=== PATIENT | female | born 1995 | race Caucasian/White ===

== ENCOUNTER 2017-02-23 11:45 | Inpatient (IN) ==
--- OUTSIDE RECORDS SUMMARY | 2017-02-23 11:51 | External Medical Summary | Continuity of Care Document ---
:1995 Author Organization [facility] [employer] Address [address] [place], [place] [id number] Phone Care Team Providers Name Role Phone [facility], [facility], [facility] Unavailable Unavailable Allergies, Adverse Reactions, Alerts Substance Reaction Severity Status No Known Drug Allergies Unknown Active Medications Medication Instructions Dosage Effective Dates Status Comments (start - stop) Miralax 17 take (17G) by 17 G - Active gram/dose oral oral route every powder day mixed with 8 oz. water, juice, soda, coffee or tea as needed ondansetron HCl 4 take 1 by Oral Not Available - Active mg tablet route every 4 hours ProAir HFA 90 inhale 2 puff by - Active mcg/actuation inhalation route aerosol inhaler every 4 - 6 hours as needed Tylenol 325 mg take 2 tablet by 650 MG - Active tablet oral route every 6 hours as needed Vitamin take 1 tablet by Not Available - Active tablet oral route every day amoxicillin 500 take 1 tablet by 500 MG - No Longer mg tablet oral route 3 times Active every day for 10 days Problems Condition Effective Dates (start - stop) Clinical Status Candidiasis of vulva and vagina Vaginal Discharge or Lesion Matern care for oth or susp poor fetl - grth, 2nd tri, unsp 17 weeks gestation of - Encounter for suprvsn of normal - , second trimester 19 weeks gestation of - 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 Follow-Up, Routine Other pruritus Ulceration of vagina Other pruritus Ulceration of vagina Dysuria Encntr screen for infections w sexl mode of transmiss Encounter for test, result - negative Matern care for oth or susp poor fetl - grth, 2nd tri, unsp 19 weeks gestation of - Other mental disorders complicating the puerperium Nausea with vomiting, unspecified Follow-Up, Routine Pap Smear Screening, Cervix - Encounter for suprvsn of normal - , first trimester 10 weeks gestation of - Encounter for suprvsn of normal - , first trimester 13 weeks gestation of - Encounter for suprvsn of normal - , second trimester 24 weeks gestation of - 13 weeks gestation of - Encounter for screening of - mother Encounter for suprvsn of normal - , second trimester 27 weeks gestation of - Active Procedures Procedure Date Unknown Results Test Name Date and Time Measure Units Reference Range Abnormal Flag Comments Unknown Advance Directives Directive Yes / No Effective Date File Name Unknown Encounters Encounter Practice Location Reason(s) Diagnoses Date Provider Care Team Description For Visit Members Arnol [place] Encounter for Nov- Lou Referring In Womens suprvsn of normal 5-201 Erin. Provider: Antonio WHITEHEAD, , second 7 700 Erin Lou [address] [id number] weeks Medical K, 700 1522, gestation of [place], , [facility] [place], 120, [place], [id number], [facility], [place], tel:[phone]. , . tel:+ tel: [phone] Arnol [place] Nov-0 Lou In Womens 3-201 Erin. Antonio WHITEHEAD, 7 700 PO [address] Medical [address], [place] [address] [place], [facility] [place], 120, [id number], [facility], tel:[phone] , . tel: [phone] Arnol [place] Encounter for Oct- Lou Referring In Womens suprvsn of normal 5-201 Erin. Provider: Antonio WHITEHEAD, , second 7 700 Erin Lou PO Box [email or web address] weeks Medical K, 700 1522, gestation of [facility], , [facility] Dr [place], 120, [place] 120, [id number], Kwadwo [place], [place], tel:[phone]. , [place]. tel: tel: [phone] Arnol [place] Encounter for Kyree-2 Lou Referring In Womens suprvsn of normal 1-201 Erin. Provider: Health CHARLEY, , second 7 700 Erin Lou PO Box [id number] weeks Medical , 700 1522, gestation of [facility], , [facility] Dr [place], 120, [place] 120, [id number], Kwadwo [place], [place], tel:[phone]. , [place]. tel: tel: [phone] [place] Matern care for Kyree-2 Lou Referring In Womens Ultrasound oth or susp poor 1-201 Erin. Provider: Antonio WHITEHEAD fetsheng fink, 2nd 7 700 Erin Lou PO Box tri, [email or web address] weeks Medical , 700 1522, gestation of [facility], , [facility] Dr [place], 120, [place] 120, [id number], Kwadwo [place], [place], tel:[phone]. , [place]. tel: tel: [phone] Arnol [place] Matern care for Kyree-0 Lou Referring In Womens oth or susp poor 6-201 Erin. Provider: ej Louis, 2nd 7 700 Erin Lou PO Box tri, [email or web address] weeks Medical , 700 1522, gestation of [facility], , [facility] Dr [place], 120, [place] 120, [id number], Kwadwo [place], [place], tel:[phone]. , [place]. tel: tel: [phone] Arnol [place] May-1 Lou In Womens 5-201 Erin. Antonio WHITEHEAD, 7 700 PO Box Medical [address], [address] [place], [place], 120, [id number], [place], tel: [phone] , [place]. tel: [phone] Arnol [place] Encounter for Lou Referring In Womens suprvsn of normal 0-201 Erin. Provider: Health CHARLEY, , first 7 700 Erin Lou PO Box [email or web address] weeks Medical K, 700 1522, gestation of [facility] [place], , [facility] Dr [place], 120, [place] 120, , Kwadwo [place], [place], tel: [phone]. , [place]. tel: tel: [phone] Arnol [place] 13 weeks Lou Referring In Womens Ultrasound gestation of 0-201 Erin. Provider: Health CHARLEY, pregnancyEncounte 7 700 Erin Lou PO Box r for Medical K, 700 1522, screening of [place], mother , [facility] Dr [place], 120, [place] 120, , Kwadwo [place], [place], [place], tel: [phone]. , [place]. tel: tel: [phone] Arnol [place] Pap Smear Apr-2 Lou Referring In Womens Screening, 0-201 Erin. Provider: Health CHARLEY, CervixEncounter 7 700 Erin Lou PO Box for suprvsn of Medical K, 700 1522, normal , [place], first [email or web address] , [facility] Dr [place], weeks gestation 120, [place] 120, , of Kwadwo [place], [place], tel: [phone]. , [place]. tel: tel: [phone] Arnol [place] Candidiasis of Apr-0 Norris Referring In Womens vulva and 7-201 Ela. Provider: Health CHARLEY, vaginaVaginal 7 700 Erin Lou PO Box Discharge or Medical K, 700 1522, [place] [address], [facility] Dr [place], 120, [place] 120, , Kwadwo [place], [place], tel:[phone]. , [place]. tel: tel: [phone] Arnol [place] Other August-1 Bland Referring In Womens pruritusUlceratio 7-201 Cassia. Provider: Health PA, n of vagina 6 700 Erin Lou PO Box Medical K, 700 1522, [place] [address], [facility] Dr [place], 120, [place] 120, , Kwadwo [place], [place], tel: [phone]. , [place]. tel: tel: [phone] Arnol Jackosn August-1 Bland Referring In Womens pruritusUlceratio 0-201 Cassia. Provider: Health CHARLEY, n of 6 700 Erin Lou PO Box vaginaDysuriaEncn Medical K, 700 1522, tr screen for [place], infections w sexl , [facility] Dr [place], mode of 120, [place] 120, , transmissEncounte Kwadwo [place], r for [place], tel: test, result [phone] [id number]. negative , [place]. tel: tel: [phone] Arnol [place] Puerperal Mar-2 Lou Referring In Womens psychosisEncounte 2-201 Erni. Provider: Health PA, r for initial 6 700 Erin Lou PO Box prescription of Medical K, 700 1522, injectable [place], contracepPostpart , [facility] Dr [place], Follow-Up, 120, [place] 120, , Routine Kwadwo [place], [place], tel:[phone]. , [place]. tel: tel: [phone] Arnol Jackson mental Mar-0 Lou Referring In Womens disorders 8-201 Erin. Provider: Health PA, complicating the 6 700 Erin Lou PO Box puerperiumNausea Medical K, 700 1522, with vomiting, [facility] [place], unspecifiedPostpa , [facility] Dr [place], rtum Follow-Up, 120, [place] 120, [id number], Routine Kwadwo [place], [place], tel: [phone]. , [place]. tel: tel: [phone] Associates Kw[facility] Krzysztof-0 Maura In Womens 3-201 Kaley. Health [place], 3 700 PO Box [facility] 1522, [place], , [facility] [place], 120, [id number], [place], tel: [phone] , [place]. tel: [phone] Family History Family Member Diagnosis Age At Onset No family history of Colon Cancer No family history of Ovarian Cancer No family history of Epilepsy No family history of Kidney Problems No family history of Thyroid Disorder No family history of Thrombosis No family history of Cardiovascular Disease Maternal Grandfather Diabetes mellitus No family history of Hypertension No family history of Osteoporosis Maternal Grandmother Cancer, breast No family history of Lung Disease No family history of Stroke Immunizations Vaccine Date Status Comments Unknown Payers Payer name Insurance type Covered libertarian ID Authorization(s) [employer] Plan Of [place] - Medicaid MC [id number] Social History Type Description Quantity Date Captured Unknown Vital Signs Date / Height Weight BMI Pulse Blood Temperature Respiratory Body Head BMI Time: Rate Pressure Rate Surface Circumference percentile Area Unknown Chief Complaint And Reason For Visit Unknown Chief Complaint And Reason For Visit Reason For Referral Reason For Referral Unknown Plan Of Care Date Type Action Status Appointment Kaylah Maurice BOOKED Future Order: Radiology Order Complete OB Ultrasound > 14 Ordered Weeks ([id number]) Future Order: Radiology Order Nuchal Translucency ([id number]) Ordered Date Type Problem Goal Intervention Status Start Date Unknown. History Of Present Illness Encounter Date Complaint History Of Present Illness This patient has no known history of present illness Functional Status Encounter Date Functional Assessment Cognitive Assessment Unknown Medications Administered Medication Instructions Dosage Effective Dates (start - stop) Status Comments Drug Treatment Unknown Instructions Date Instruction Additional Information gestational glucose lab screening HIV and other routine tests risk factors identified by history anticipated course of care nutrition and weight gain counseling, special diet toxoplasmosis precautions (cats / raw meat) sexual activity exercise indications for ultrasound influenza vaccine environmental / work hazards travel use of any medications (including supplements, vitamins, herbs, OTC drugs) domestic violence seat belt use childbirth classes / hospital facilities hospital registration genetic testing Zika virus assessment & precautions
--- OUTSIDE RECORDS SUMMARY | 2017-02-23 11:51 | External Medical Summary | Continuity of Care Document ---
:1995 Author Organization [facility] [employer] [facility] Address [address] [place], [place] [id number] Phone Care Team Providers Name Role Phone [facility], [facility], [facility] Unavailable Unavailable Allergies, Adverse Reactions, Alerts Substance Reaction Severity Status No Known Drug Allergies Unknown Active Medications Medication Instructions Dosage Effective Dates Status Comments (start - stop) Miralax 17 take (17G) by oral 17 G - Active gram/dose oral route every day powder mixed with 8 oz. water, juice, soda, coffee or tea as needed ondansetron HCl 4 take 1 by Oral route Not Available - Active mg tablet every 4 hours ProAir HFA 90 inhale 2 puff by - Active mcg/actuation inhalation route aerosol inhaler every 4 - 6 hours as needed Tylenol 325 mg take 2 tablet by 650 MG - Active tablet oral route every 6 hours as needed Vitamin take 1 tablet by Not Available - Active tablet oral route every day Problems Condition Effective Dates (start - stop) Clinical Status Encounter for suprvsn of normal - , second trimester 27 weeks gestation of - Candidiasis of vulva and vagina Vaginal Discharge or Lesion Matern care for oth or susp poor fetl - grth, 2nd tri, unsp 17 weeks gestation of - Encounter for suprvsn of normal - , second trimester 19 weeks gestation of - 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 Follow-Up, Routine Other pruritus Ulceration of vagina Other pruritus Dysuria Encntr screen for infections w sexl mode of transmiss Ulceration of vagina Encounter for test, result - negative Other mental disorders complicating the puerperium Nausea with vomiting, unspecified Follow-Up, Routine Pap Smear Screening, Cervix - Encounter for suprvsn of normal - , first trimester 10 weeks gestation of - Matern care for oth or susp poor fetl - grth, 2nd tri, unsp 19 weeks gestation of - 13 weeks gestation of - Encounter for screening of - mother Encounter for suprvsn of normal - , first trimester 13 weeks gestation of - Encounter for suprvsn of normal - , second trimester 24 weeks gestation of - Active Procedures Procedure Date OB Visit No Charge Results Test Name Date and Time Measure Units Reference Range Abnormal Flag Comments Panel Description: Glucose [Mass/volume] in Serum or Plasma --1 hour post 50 g glucose PO GLUCOSE, 125 mg/dL <140 N Test performed at [facility] 15:55:00 DIAGNOSTICS [id number] (50G)-[address] [place] [address]Tfgmhuvu: DELIO ORTEGA DO,MPH Panel Description: HEMOGLOBIN + HEMATOCRIT HEMOGLOBIN 15:55:00 10.4 g/dL 11.7-15.5 L HEMATOCRIT 15:55:00 30.9 % 35.0-45.0 L Test performed at [facility] [employer] [id number] [place] [address]Psqkixqt: DELIO ORTEGA DO,MPH Advance Directives Directive Yes / No Effective Date File Name Unknown Encounters Encounter Practice Location Reason(s) Diagnoses Date Provider Care Team Description For Visit Members Arnol Burkett Encounter for Lou Referring In Womens suprvsn of normal 5-201 Erin. Provider: Health PA, , second 7 700 Erin Lou PO Box [email or web address] weeks Medical K, 700 1522, gestation of [place], , [facility] [place], 120, [place], [id number], Kwadwo [place], [place], tel:[phone]. , [place]. tel: tel: [phone] Arnol [place] Encounter for Ryan-2 Lou Referring In Womens suprvsn of normal 5-201 Erin. Provider: Health CHARLEY, , second 7 700 Erin Lou PO Box [email or web address] weeks Medical K, 700 1522, gestation of [facility], , [facility] [address] [place], 120, [place] 120, [id number], Kwadwo [place], [place], tel: [phone]. , [place]. tel: tel: [phone] [place] Encounter for Kyree-2 Lou Referring In Womens suprvsn of normal 1-201 Erin. Provider: Health CHARLEY, , second 7 700 Erin Lou PO Box [email or web address] weeks Medical , 700 1522, gestation of [facility], , [facility] Dr [place], 120, [place] 120, [id number], Kwadwo [place], [place], tel: [phone]. , [place]. tel: tel: [phone] Arnol [place] Matern care for Kyree-2 Lou Referring In Womens Ultrasound oth or susp poor 1-201 Erin. Provider: Health CHARLEY, fetl grth, 2nd 7 700 Erin Lou PO Box tri, [id number] weeks Medical , 700 1522, gestation of [facility], , [facility] Dr [place], 120, [place] 120, [id number], Kwadwo [place], [place], tel: [phone]. , [place]. tel: tel: [phone] [place] Matern care for Kyree-0 Lou Referring In Womens oth or susp poor 6-201 Erin. Provider: Antonio WHITEHEAD, fetl grth, 2nd 7 700 Erin Lou PO Box tri, [email or web address] weeks Medical , 700 1522, gestation of [facility], , [facility] Dr [place], 120, [place] 120, [id number], Kwadwo [place], [place], tel: [phone]. , [place]. tel: tel: [phone] Arnol [place] August- Lou In Womens 5-201 Erin. Health CHARLEY, 7 700 PO Box Medical [address], [place], , [place], 120, , [place], tel:[phone] , [place]. tel: [phone] Arnol [place] Encounter for August- Lou Referring In Womens suprvsn of normal 0-201 Erin. Provider: Health CHARLEY, , first 7 700 Erin Lou PO Box [id number] weeks Medical K, 700 1522, gestation of [facility] [place], Dr, [facility] Dr [place], 120, [place] 120, , Kwadwo [place], [place], tel:[phone]. , [place]. tel: tel: [phone] Arnol [place] 13 weeks August- Lou Referring In Womens Ultrasound gestation of 0-201 Erin. Provider: Health CHARLEY, pregnancyEncounte 7 700 Erin Lou PO Box r for Medical K, 700 1522, screening of [facility] [place], mother , [facility] Dr [place], 120, [place] 120, , Kwadwo [place], [place], tel:[phone]. , [place]. tel: tel: [phone] Arnol [place] Pap Smear Apr-2 Lou Referring In Womens Screening, 0-201 Erin. Provider: Health CHARLEY, CervixEncounter 7 700 Erin Lou PO Box for suprvsn of Medical K, 700 1522, normal , [facility] [place], first [id number] , [facility] Dr [place], weeks gestation 120, [place] 120, , of Kwadwo [place], [place], tel:[phone]. , [place]. tel: tel: [phone] Arnol [place] Candidiasis of Jul-0 Norris Referring In Womens vulva and Ela. Provider: Health CHARLEY, vaginaVaginal 7 700 Erin Lou PO Box Discharge or Medical K, 1522, [place] [address], [facility] Dr [place], 120, [place] 120, , Kwadwo [place], [place], tel:[phone]. , [place]. tel: tel: [phone] Associates Kw[facility]wo Other Bland Referring In Womens pruritusUlceratio - Cassia. Provider: Health CHARLEY, n of vagina 6 700 Erin Lou PO Box Medical K, 152, [place] [address], [facility] Dr [place], 120, [place] 120, , Kwadwo [place], [place], tel:[phone]. , [place]. tel: tel: [phone] Associates [facility] Other Bland Referring In Womens pruritusDysuriaEn 0- Cassia. Provider: Health CHARLEY, cntr screen for 6 700 Erin Lou PO Box infections w sexl Medical K, 152, mode of [place], transmissUlcerati , [facility] Dr [place], on of 120, [place] 120, , vaginaEncounter Kwadwo [place], for [place], tel: test, result [id number]. negative , [place]. tel: tel: [phone] Arnol [place] Puerperal Mar-2 Lou Referring In Womens psychosisEncounte 2-201 Erin. Provider: Health CHARLEY, r for initial 6 700 Erin Lou PO Box prescription of Medical K, 700 1522, injectable [place], contracepPostpart , [facility] Dr [place], Follow-Up, 120, [place] 120, , Routine Kwadwo [place], [place], tel:[phone]. , [place]. tel: tel: [phone] Associates [facility] Other mental Mar-0 Lou Referring In Womens disorders 8-201 Erin. Provider: Health CHARLEY, complicating the 6 700 Erin Lou PO Box puerperiumNausea Medical K, 700 1522, with vomiting, [facility] [place], unspecifiedPostpa , [facility] [place], rtum Follow-Up, 120, [place] 120, [id number], Routine Kwadwo [place], [place], tel: [phone]. , . tel: tel: [phone] Arnol [place] Krzysztof-0 Maura In Womens 3-201 Kaley. Health CHARLEY, 3 700 PO [address] Medical [address], [place], , [place], 120, [id number], [place], tel: [phone] , . tel: [phone] Family History Family Member Diagnosis Age At [...] Unknown Payers Payer name Insurance type Covered constitution party ID Authorization(s) [employer] Plan Of [place] - Medicaid MC [id number] Social History Type Description Quantity Date Captured Alcohol Use Details No Caffeine Use Details Unknown Tobacco Use Status Unknown Smoking Status Never smoker Vital Signs Date / Height Weight BMI Pulse Blood Temperature Respiratory Body Head BMI Time: Rate Pressure Rate Surface Circumference percentile Area 5 3:09 kg/m PM eter (2) 134.50 23.4 116/65 lbs 5 mm[Hg] 3:08 kg/m PM eter (2) 135.00 23. lbs 4 3:08 kg/m PM eter (2) 134.60 23.4 116/65 lbs 7 mm[Hg] 2:56 kg/m PM eter (2) Chief Complaint And Reason For Visit Unknown Chief Complaint And Reason For Visit Reason For Referral Reason For Referral Unknown Plan Of Care Date Type Action Status Appointment Kaylah Maurice BOOKED Future Order: Radiology Order Complete OB Ultrasound > 14 Ordered Weeks ([id number]) Future Order: Radiology Order Nuchal Translucency ([id number]) Ordered Date Type Problem Goal Intervention Status [...]
--- OUTSIDE RECORDS SUMMARY | 2017-02-23 11:51 | External Medical Summary | Continuity of Care Document ---
:1995 Author Organization [facility] Address [address] [place], [place] [id number] Phone Care Team Providers Name Role Phone [facility], [facility], [facility] Unavailable Unavailable Allergies, Adverse Reactions, Alerts Substance Reaction Severity Status No Known Drug Allergies Unknown Active Medications Medication Instructions Dosage Effective Dates Status Comments (start - stop) acyclovir 400 mg take 1 tablet by - Active tablet oral route 3 times every day until delivery Miralax 17 take (17G) by oral 17 G - Active gram/dose oral route every day powder mixed with 8 oz. water, juice, soda, coffee or tea as needed ProAir HFA 90 inhale 2 puff by [...] vulva and vagina Vaginal Discharge or Lesion Encounter for suprvsn of normal - , second trimester 19 weeks gestation of - Matern care for oth or susp poor fetl - grth, third tri, unsp Encounter for suprvsn of normal - , third trimester 34 weeks gestation of - 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 Follow-Up, Routine Other pruritus Ulceration of vagina Other pruritus Ulceration of vagina Dysuria Encntr screen for infections w sexl mode of transmiss Encounter for test, result - negative Matern care for oth or susp poor fetl - grth, 2nd tri, unsp 19 weeks gestation of - Matern care for oth or susp poor fetl - grth, 2nd tri, unsp 17 weeks gestation of - Matern care for oth or susp poor fetl - grth, third tri, unsp 35 weeks gestation of - Other mental disorders complicating the puerperium Nausea with vomiting, unspecified Follow-Up, Routine Pap Smear Screening, Cervix - Encounter for suprvsn of normal - , first trimester 10 weeks gestation of - Encounter for suprvsn of normal - , first trimester 13 weeks gestation of - Encounter for suprvsn of normal - , second trimester 24 weeks gestation of - Encounter for suprvsn of normal - , second trimester 27 weeks gestation of - Encounter for suprvsn of normal - , third trimester 32 weeks gestation of - Encounter for screening of - mother 13 weeks gestation of - Encounter for suprvsn of normal - , third trimester 30 weeks gestation of - 35 weeks gestation of - Encounter for suprvsn of normal - , third trimester Encounter For Screening For - Streptococcus B Active Procedures Procedure Date Unknown Results Test Name Date and Time Measure Units Reference Range Abnormal Flag Comments Unknown Advance Directives Directive Yes / No Effective Date File Name Unknown Encounters Encounter Practice Location Reason(s) Diagnoses Date Provider Care Team Description For Visit Members Arnol [place] 35 weeks Jan- Lou Referring In Womens gestation of 2-201 Erin. Provider: Health CHARLEY pregnancyJese 7 700 Erin Lou PO Box r for suprvsn of Medical K, 700 1522, normal , [facility] , [facility] [address] [place], trimesterEncounte 120, Williams 120, [id number], r For [place], [place] Screening For [place], [place], tel:[phone] Streptococcus B [phone]. , [place]. tel: tel: [phone] Arnol [place] Matern care for Oct-1 Lou Referring In Womens Ultrasound oth or susp poor 2-201 Erin. Provider: Antonio WHITEHEAD, fetl grth, third 7 700 Erin Lou PO Box tri, [email or web address] weeks Medical , 700 1522, gestation of [facility], , [facility] [address] [place], 120, [place] 120, [id number], [place], [place], [place], tel:[phone]. , [place]. tel: tel: [phone] Arnol [place] Matern care for Oct-0 Lou Referring In Womens oth or susp poor 3-201 Erin. Provider: Antonio WHITEHEAD, fetl grth, third 7 700 Erin Lou PO Box tri, Medical , 700 1522, unspEncounter for [facility], suprvsn of normal , [facility] Dr [place], , third 120, Williams 120, [id number], [email or web address] weeks Kwadwo [place], gestation of [place], [place], tel: [phone]. , [place]. tel: tel: [phone] Arnol [place] Sep-2 Lou In Womens 5-201 Erin. Antonio WHITEHEAD, 7 700 PO Box Medical [address], [address] [place], 120, [id number], [place], [place], tel:[phone] , [place]. tel: [phone] Arnol [place] Encounter for Sep-1 Lou Referring In Womens suprvsn of normal 9-201 Erin. Provider: Antonio WHITEHEAD, , third 7 700 Erin Lou PO Box [email or web address] weeks Medical , 700 1522, gestation of [facility], , [facility] [address] [place], 120, Williams 120, [id number], Kw[place], [place], tel: [phone]. , [place]. tel: tel: [phone] Arnol [place] Encounter for Sep-0 Lou Referring In Womens suprvsn of normal 5-201 Erin. Provider: Health CHARLEY, , third 7 700 Erin Lou PO Box [email or web address] weeks Medical , 700 1522, gestation of [facility], , [facility] [address] [place], 120, [place] 120, [id number], Kw[place], [place], [place], tel: [phone]. , [place]. tel: tel: [phone] Arnol [place] Encounter for Aug-1 Lou Referring In Womens suprvsn of normal 5-201 Erin. Provider: Health CHARLEY, , second 7 700 Erin Lou PO Box [email or web address] weeks [facility], 700 1522, gestation of [facility], , [facility] [address] [place], 120, [place] 120, [id number], Kwadwo [place], [facility], [place], tel: [phone]. , [place]. tel: tel: [phone] Arnol [place] Encounter for Ryan-2 Lou Referring In Womens suprvsn of normal 5-201 Erin. Provider: Health CHARLEY, , second 7 700 Erin Lou PO Box [email or web address] weeks Medical , 700 1522, gestation of [facility], , [facility] [address] [place], 120, [place] 120, [id number], Kw[place]wo [place], [facility], [place], tel: [phone]. , [place]. tel: tel: [phone] Arnol Burk[place] Encounter for Kyree-2 Lou Referring In Womens suprvsn of normal 1-201 Erin. Provider: Health CHARLEY, , second 7 700 Erin Lou PO Box [id number] weeks Medical , 700 1522, gestation of [facility], , [facility] Dr [place], 120, [place] 120, [id number], [place]wo [place], [place], [place], tel: [phone]. , [place]. tel: tel: [phone] Arnol [place] Matern care for Kyree-2 Lou Referring In Womens Ultrasound oth or susp poor 1-201 Erin. Provider: Antonio WHITEHEAD, ej crawford, 2nd 7 700 Erin Lou PO Box tri, [email or web address] weeks Medical K, 700 1522, gestation of [facility], , [facility] Dr [place], 120, [place] 120, [id number], Kw[place]wo [place], [place], tel: [phone]. , [place]. tel: tel: [phone] Arnol Burk[place] Matern care for Kyree-0 Lou Referring In Womens oth or susp poor 6-201 Erin. Provider: ej Louis [facility], 2nd 7 700 Erin Lou PO Box tri, [email or web address] weeks Medical , 700 1522, gestation of [facility], , [facility] [address] [place], 120, [place] 120, [id number], Kw[place]wo [place], [place], tel: [phone]. , [place]. tel: tel: [phone] Arnol Burk[place] May-1 Lou In Womens 5-201 Erin. Antonio WHITEHEAD, 7 700 PO Box Medical [address], [address] [place], 120, [id number], [place], [place], tel: [phone] , [place]. tel: [phone] Arnol Burk[place] Encounter for May-1 Lou Referring In Womens suprvsn of normal 0-201 Erin. Provider: Antonio WHITEHEAD, , first 7 700 Erin Lou PO Box [email or web address] weeks Medical , 700 1522, gestation of [facility], , [facility] [address] [place], 120, [place] 120, [id number], [place], [place], tel: [phone]. , [place]. tel: tel: [phone] Arnol [place] Encounter for May-1 Lou Referring In Womens Ultrasound 0-201 Erin. Provider: Health CHARLEY, screening of 7 700 Erin Lou PO Box [email or web address] weeks Medical K, 700 1522, gestation of [facility], , [facility] [address] [place], 120, [place] 120, , [place], [place], [place], tel: [phone]. , [place]. tel: tel: [phone] Arnol [place] Pap Smear Apr-2 Lou Referring In Womens Screening, 0-201 Erin. Provider: Health CHARLEY, CervixEncounter 7 700 Erin Lou PO Box for suprvsn of Medical K, 700 1522, normal , [facility], first [email or web address] , [facility] Dr [place], weeks gestation 120, Williams 120, , of Kwadwo [place], [place], [place], tel: [phone]. , [place]. tel: tel: [phone] Arnol Burk[place] Candidiasis of Apr-0 Norris Referring In Womens vulva and 7-201 Ela. Provider: Health CHARLEY, vaginaVaginal 7 700 Erin Lou PO Box Discharge or Medical K, 700 1522, [place] [address], [facility] [address] [place], 120, Williams 120, , [place], [place], [place], tel: [phone]. , [place]. tel: tel: [phone] Arnol Jackson August- Baldo Referring In Womens pruritusUlceratio 7-201 Cassia. Provider: Health CHARLEY, n of vagina 6 700 Erin Lou PO Box Medical K, 700 1522, [address], [facility] [address] [place], 120, Williams 120, [id number], [place], [place], tel: [phone]. , [place]. tel: tel: [phone] Arnol Jackson August- Bland Referring In Womens pruritusUlceratio 0-201 Cassia. Provider: Health CHARLEY, n of 6 700 Erin Lou PO Box vaginaDysuriaEncn Medical K, 700 1522, tr screen for [facility], infections w sexl , [facility] [address] [place], mode of 120, Williams 120, [id number], transmissEncounte [place]wo [place], r for [place], [place], tel: test, result . negative , [place]. tel: tel: [phone] Arnol Burk[place] Puerperal Mar-2 Lou Referring In Womens psychosisEncounte 2-201 Erin. Provider: Health CHARLEY, r for initial 6 700 Erin Lou PO Box prescription of Medical K, 700 1522, injectable [facility], contracepPostpart , [facility] Dr [place], um Follow-Up, 120, Williams 120, , Routine [place]wo [place], [place], [place], tel:[phone]. , [place]. tel: tel: [phone] Arnol Burk[place] Other mental Mar-0 Lou Referring In Womens disorders 8-201 Erin. Provider: Health CHARLEY, complicating the 6 700 Erin Lou PO Box puerperiumNausea Medical K, 700 1522, with vomiting, [facility], unspecifiedPostpa , [facility] Dr [place], rtum Follow-Up, 120, Williams 120, , Routine [place]wo [place], [place], [place], tel:[phone]. , [place]. tel: tel: [phone] Arnol Burk[place] Krzysztof-0 Maura In Womens 3-201 Kaley. Health CHARLEY, 3 700 PO Box Medical [address], [address] [place], [facility] [place], 120, , [place], [place], tel:[phone] , [place]. tel: [phone] Family History Family Member Diagnosis Age At [...] of Stroke Immunizations Vaccine Date Status Comments Influenza, injectable, completed Source: New Immunization Record quadrivalent, preservative free, 3 yrs or older Tdap completed Source: New Immunization Record Payers Payer name Insurance type Covered green party ID Authorization(s) [employer] [place] Medicaid MC [id number] [employer] [place] [id number] [employer] [place] Medicaid MC [id number] Social History Type Description Quantity Date Captured [...] Complete OB Ultrasound > 14 Ordered Weeks (49968) Future Order: Radiology Order Ultrasound OB Follow-up ([id number]) Ordered Future Order: Radiology Order Nuchal Translucency ([id number]) Ordered Date Type Problem Goal Intervention Status Start Date Unknown. History Of Present Illness Encounter Date Complaint History Of Present Illness This patient has no known history of present illness Functional Status Encounter Date Functional Assessment Cognitive Assessment Unknown Medications Administered Medication Instructions Dosage Effective Dates (start - stop) Status Comments Drug Treatment Unknown Instructions Date Instruction Additional Information labor signs group B strep screening gestational glucose lab screening HIV and other [...]
--- OUTSIDE RECORDS SUMMARY | 2017-02-23 11:51 | External Medical Summary | Continuity of Care Document ---
:1995 Author Organization [email or web address] Address [address] [place], [place] [id number] Phone Care Team Providers Name Role Phone [facility], [facility], [facility] Unavailable Unavailable Allergies, Adverse Reactions, Alerts [...] second trimester 24 weeks gestation of - Candidiasis of vulva [...] mode of transmiss Encounter for test, result May-10-2016 - negative Matern care for oth or [...] 27 weeks gestation of - Encounter for screening of - mother 13 weeks gestation of - Active Procedures Procedure [...] second 7 700 Erin Lou PO Box [email or web address] weeks Medical , 700 1522, gestation of [facility], , [facility] Dr [place]ERT[place], 120, Williams 120, [id number], Kwadwo Burk[place], [email or web address] [place], tel: [phone]. , [place]. tel: tel: [phone] Arnol Burk[place] Encounter for Lou Referring In Womens suprvsn of normal 5-201 Erin. Provider: Health [place], , second 7 700 Erin Lou PO Box [email or web address] weeks Medical , 700 1522, gestation of [facility], Dr [facility] Dr [place], 120, Williams 120, [id number], Kwadwo [place], [email or web address] [place], tel: [phone]. , [place]. tel: tel: [phone] Arnol [place] Encounter for Lou Referring In Womens suprvsn of normal 1-201 Erin. Provider: Antonio WHITEHEAD, , second 7 700 Erin Lou PO Box weeks Medical , 700 1522, gestation of [facility], , [facility] [place], 120, [place] 120, [id number], Kw[place]wo [place], [place], [place], tel:[phone]. , [place]. tel: tel: [phone] Arnol [place] Matern care for Kyree-2 Lou Referring In Womens Ultrasound oth or susp poor 1-201 Erin. Provider: Antonio WHITEHEAD, fetl grth, 2nd 7 700 Erin Lou PO Box tri, [email or web address] weeks Medical , 700 1522, [facility], , [facility] [place], 120, [place] 120, [id number], [place], [place], [place], tel:[phone]. , [place]. tel: tel: [phone] Arnol Burk[place] Matern care for Kyree-0 Lou Referring In Womens oth or susp poor 6-201 Erin. Provider: Antonio WHITEHEAD, fetl grth, 2nd 7 700 Erin Lou PO Box tri, [email or web address] weeks Medical , 700 1522, gestation of [facility], , [facility] Dr [place], 120, Williams 120, [id number], Kw[place]wo [place], [place], [place], tel: [phone]. , [place]. tel: tel: [phone] Arnol Burk[place] May-1 Lou In Womens 5-201 Erin. Antonio WHITEHEAD, 7 700 PO Box Medical [address], [address] [place], 120, [id number], [place], [place], tel: [phone] , [place]. tel: [phone] Arnol Burk[place] Encounter for May-1 Lou Referring In Womens suprvsn of normal 0-201 Erin. Provider: Antonio WHITEHEAD, , first 7 700 Erin Lou PO Box [email or web address] weeks Medical , 700 1522, gestation of [facility], , [facility] Dr [place]ERT[place], 120, Williams 120, , [place], [place], tel:[phone]. , [place]. tel: tel: [phone] Associates [place] Encounter for August- Lou Referring In Womens Ultrasound 0-201 Erin. Provider: Antonio WHITEHEAD, screening of 7 700 Erin Lou PO Box [email or web address] weeks Medical , 700 1522, gestation of [facility], , [facility] Dr [place]ERT[place], 120, Williams 120, [id number], [place], [place], tel:[phone]. , [place]. tel: tel: [phone] [facility] [place] Pap Smear Apr-2 Lou Referring In Womens Screening, 0-201 Erin. Provider: Antonio WHITEHEAD, CervixEncounter 7 700 Erin Lou PO Box for suprvsn of [facility], 700 1522, normal , [facility], first [email or web address] , [facility] Dr AL[place]ERTS, weeks gestation 120, Williams 120, , of Kw[place]wo [place], [place], tel:[phone]. , [place]. tel: tel: [phone] Arnol Burk[place] Candidiasis of Apr-0 Norris Referring In Womens vulva and 7-201 Ela. Provider: Antonio WHITEHEAD, vaginaVaginal 7 700 Rein Lou PO Box Discharge or Medical , 700 1522, [place] [address], [facility] Dr [place]ERT[place], 120, Williams 120, , [place], [place], tel:[phone]. , [place]. tel: tel: [phone] Arnol Burk[place] Other August- Bland Referring In Womens pruritusUlceratio 7-201 Cassia. Provider: Antonio WHITEHEAD, n of vagina 6 700 Erin Lou PO Box Medical , 700 1522, [address], [facility] Dr [place], 120, Williams 120, , [place], [place], tel:[phone]. , [place]. tel: tel: [phone] Arnol Burk[place] Other May-1 Bland Referring In Womens pruritusUlceratio 0-201 Cassia. Provider: Health PA, n of 6 700 Erin Lou PO Box vaginaDysuriaEncn Medical K, 700 1522, tr screen for [facility] [place], infections w sexl , [facility] Dr ALBERTS, mode of 120, Williams 120, , transmissEncounte [place]wo [place], r for [place], [place], tel: test, result [id number]. negative , [place]. tel: tel: [phone] Arnol Burk[place] Puerperal Mar-2 Lou Referring In Womens psychosisEncounte 2-201 Erin. Provider: Health CHARLEY, r for initial 6 700 Erin Lou PO Box prescription of Medical K, 700 1522, injectable [place] [address], contracepPostpart , [facility] Dr AL[place]ERTS, um Follow-Up, 120, Williams 120, , Routine Kw[place]wo [place], [place], tel:[phone]. , [place]. tel: tel: [phone] Arnol Burk[place] Other mental Mar-0 Lou Referring In Womens disorders 8-201 Erin. Provider: Health PA, complicating the 6 700 Erin Lou PO Box puerperiumNausea Medical K, 700 1522, with vomiting, [address], unspecifiedPostpa , [facility] Dr [place]ERT[place], rtum Follow-Up, 120, [place] 120, , Routine Kw[place]wo [place], [place], tel:[phone]. , [place]. tel: tel: [phone] Arnol [place] Krzysztof-0 Maura In Womens 3-201 Kaley. Health [facility], 3 700 PO Box Medical [address], [address] [place], 120, [id number], [facility] [place], tel:[phone] , [place]. tel: [phone] Family History Family Member Diagnosis Age At [...] [employer] [place] - Medicaid MC [id number] Social History Type Description Quantity Date Captured Alcohol Use Details No Caffeine Use Details Unknown Tobacco Use Status Unknown Smoking Status Never smoker Vital Signs Date / Height Weight BMI Pulse Blood Temperature Respiratory Body Head BMI Time: Rate Pressure Rate Surface Circumference percentile Area 128.60 22.4 105/ lbs 2 mm[Hg] 3:38 kg/m PM eter (2) 9 3:34 kg/m PM eter (2) Chief Complaint And Reason For Visit Unknown Chief Complaint And Reason For Visit Reason For Referral Reason For Referral Unknown Plan Of Care Date Type Action Status Appointment Kaylah Maurice BOOKED Future Order: Radiology Order Complete OB Ultrasound > 14 Ordered Weeks ([id number]) Future Order: Radiology Order Nuchal Translucency ([id number]) Ordered Date Type Problem Goal Intervention Status [...]
--- OUTSIDE RECORDS SUMMARY | 2017-02-23 11:52 | External Medical Summary | Continuity of Care Document ---
:1995 Author Organization [facility] Address [address] [place], [place] [address] Phone Care Team Providers Name Role Phone Formerly [facility], [facility], [facility] Unavailable Unavailable Allergies, Adverse Reactions, Alerts [...] third trimester 30 weeks gestation of - Candidiasis of vulva [...] Encounter for test, result May-10-2016 - negative Other mental disorders complicating the puerperium Nausea with vomiting, unspecified Follow-Up, Routine Encounter for suprvsn of normal - , first trimester Pap Smear Screening, Cervix - 10 weeks gestation of - Encounter for suprvsn of normal - , first trimester 13 weeks gestation of - Matern care for oth or susp poor fetl - grth, 2nd tri, unsp 19 weeks gestation of - Encounter for suprvsn of normal - , second trimester 24 weeks gestation of - Encounter for suprvsn of normal - , second trimester 27 weeks gestation of - Encounter for screening of - mother 13 weeks gestation of - Encounter for suprvsn of normal - , third trimester 32 weeks gestation of - Active Procedures Procedure Date Immuniz admnin, 1 vac, sngl/combo 19 Yrs + TDAP VACCINE >7 IM OB Visit No Charge Results Test Name Date and Time Measure Units Reference Range Abnormal Flag Comments Unknown Advance Directives Directive Yes / No Effective Date File Name Unknown Encounters Encounter Practice Location Reason(s) Diagnoses Date Provider Care Team Description For Visit Members Arnol [place] Encounter for Sep-1 Lou Referring In Womens suprvsn of normal 9-201 Erin. Provider: Antonio WHITEHEAD, , third 7 700 Erin Lou [address] [email or web address] weeks Medical , 700 1522, gestation of [facility], , [facility] [address] [place], 120, [place] 120, [id number], Kwadwo [place], [place], tel:[phone] , [place]. tel: tel: [phone] Arnol [place] Encounter for Sep-0 Lou Referring In Womens suprvsn of normal 5-201 Erin. Provider: Antonio WHITEHEAD, , third 7 700 Erin Lou PO Box [email or web address] weeks Medical , 700 1522, gestation of [facility], , [facility] Dr [place], 120, [place] 120, [id number], Kwadwo [place], [place], tel: [phone]. , [place]. tel: tel: [phone] Arnol [place] Encounter for Aug- Lou Referring In Womens suprvsn of normal 5-201 Erin. Provider: Antonio WHITEHEAD, , second 7 700 Erin Lou PO Box weeks Medical , 700 1522, gestation of [facility], , [facility] Dr [place], 120, [place] 120, [id number], Kwadwo [place], [place], tel: [phone]. , [place]. tel: tel: [phone] Burk[place] Encounter for Ryan-2 Lou Referring In Womens suprvsn of normal 5-201 Erin. Provider: Antonio WHITEHEAD, , second 7 700 Erin Lou PO Box [id number] weeks Medical , 700 1522, gestation of [facility], , [facility] Dr [place], 120, [place] 120, [id number], Kwadwo [place], [place], tel: [phone]. , [place]. tel: tel: [phone] [place] Encounter for Kyree-2 Lou Referring In Womens suprvsn of normal 1-201 Erin. Provider: Antonio WHITEHEAD, , second 7 700 Erin Lou PO Box [email or web address] weeks Medical , 700 1522, gestation of [facility], , [facility] Dr [place], 120, [place] 120, [id number], Kwadwo [place], [place], [place], tel: [phone]. , [place]. tel: tel: [phone] [place] Matern care for Kyree-2 Lou Referring In Womens Ultrasound oth or susp poor 1-201 Erin. Provider: Antonio WHITEHEAD, fetl grth, 2nd 7 700 Erin Lou PO Box tri, unsp19 weeks [facility], 700 1522, gestation of [facility], , [facility] Dr [place], 120, [place] 120, [id number], Kwadwo [place], [place], tel: [phone]. , [place]. tel: tel: [phone] Arnol [place] Matern care for Kyree-0 Lou Referring In Womens oth or susp poor 6-201 Erin. Provider: Antonio WHITEHEAD, fetl grth, 2nd 7 700 Erin Lou PO Box tri, unsp17 weeks [facility], 700 1522, gestation of [facility], , [facility] Dr [place], 120, [place] 120, , Kwadwo [place], [place], tel:+ [phone]. , [place]. tel: tel: [phone] Arnol Burk[place] May-1 Lou In Womens 5-201 Erin. Antonio WHITEHEAD, 7 700 PO Box Medical 1522, [place], , [facility] [place], 120, [id number], [place], [place], tel: [phone] , [place]. tel: [phone] Arnol [place] Encounter for May-1 Lou Referring In Womens suprvsn of normal 0-201 Erin. Provider: Antonio WHITEHEAD, , first 7 700 Erin Lou PO Box [email or web address] weeks [facility], 700 1522, gestation of [facility], , [facility] Dr [place], 120, [place] 120, [id number], Kwadwo [place], [place], tel: [phone]. , [place]. tel: tel: [phone] Arnol Burk[place] Encounter for May-1 Lou Referring In Womens Ultrasound 0-201 Erin. Provider: Antonio WHITEHEAD, screening of 7 700 Erin Lou PO Box [id number] weeks [facility], 700 1522, gestation of [facility], , [facility] Dr [place], 120, [place] 120, [id number], Kwadwo [place], [place], tel: [phone]. , [place]. tel: tel: [phone] Arnol Burk[place] Encounter for Apr-2 Lou Referring In Womens suprvsn of normal 0-201 Erin. Provider: Health PA, , first 7 700 Erin Lou PO Box trimesterPap Medical , 700 1522, Smear Screening, [facility] [place], [email or web address] weeks , [facility] Dr [place], gestation of 120, [place] 120, , Kwadwo [place], [place], tel: [phone]. , [place]. tel: tel: [phone] Arnol Burkett Candidiasis of Apr-0 Norris Referring In Womens vulva and 7-201 Ela. Provider: Health CHARLEY, vaginaVaginal 7 700 Erin Lou PO Box Discharge or Medical , 700 1522, Lesion [facility] Dr [place], [facility] Dr [place], 120, [place] 120, , Kwadwo [place], [place], tel: [phone]. , [place]. tel: tel: [phone] Arnol Burkett Other August-1 Bland Referring In Womens pruritusUlceratio 7-201 Cassia. Provider: Health CHARLEY, n of vagina 6 700 Erin Lou PO Box Medical , 700 1522, [facility] Dr [place], [facility] Dr [place], 120, [place] 120, , Kwadwo [place], [place], tel: [phone]. , [place]. tel: tel: [phone] Arnol Burk[place] Other May-1 Bland Referring In Womens pruritusUlceratio 0-201 Cassia. Provider: Health CHARLEY, n of 6 700 Erin Lou PO Box vaginaDysuriaEncn Medical K, 700 1522, tr screen for [facility] [place], infections w sexl , [facility] Dr [place], mode of 120, [place] 120, , transmissEncounte Kwadwo [place], [place] r for [place], tel: test, result [id number]. negative , [place]. tel: tel: [phone] [facility] Puerperal Mar-2 Lou Referring In Womens psychosisEncounte 2-201 Erin. Provider: Health PA, r for initial 6 700 Erin Lou PO Box prescription of Medical K, 700 1522, injectable [facility] [place], contracepPostpart , [facility] Dr [place], um Follow-Up, 120, [place] 120, [id number], Routine Kwadwo [place], [place], [place], tel: [phone]. , [place]. tel: tel: [phone] [facility] Other mental Mar-0 Lou Referring In Womens disorders 8-201 Erin. Provider: Health PA, complicating the 6 700 Erin Lou PO Box puerperiumNausea Medical K, 700 1522, with vomiting, [place], unspecifiedPostpa , [facility] Dr [place]ERT[place], rtum Follow-Up, 120, [place] 120, [id number], Routine Kwadwo [place], [place], tel: [phone]. , [place]. tel: tel: [phone] Arnol Burkett Krzysztof-0 Maura In Womens 3-201 Kaley. Health PA, 3 700 PO Box Medical 1522, [place] [address] [place], [facility] [place], 120, [id number], [place], [place], tel: [phone] , [place]. tel: [phone] Family History Family Member Diagnosis Age At [...] of Stroke Immunizations Vaccine Date Status Comments Tdap completed Source: New Immunization Record Payers Payer name Insurance type Covered libertarian ID Authorization(s) [employer] [place] - Medicaid MC [id number] [employer] [place] Medicaid MC [id number] Social History Type Description Quantity Date Captured Alcohol Use Details No Caffeine Use Details Unknown Tobacco Use Status Unknown Smoking Status Never smoker Vital Signs Date / Height Weight BMI Pulse Blood Temperature Respiratory Body Head BMI Time: Rate Pressure Rate Surface Circumference percentile Area 5 3:06 kg/m PM eter (2) 136.40 23.7 107/61 lbs 8 mm[Hg] 3:11 kg/m PM eter (2) Chief Complaint And Reason For Visit Unknown Chief Complaint And Reason For Visit Reason For Referral Reason For Referral Unknown Plan Of Care Date Type Action Status Appointment Kaylah Maurice BOOKED Future Order: Radiology Order Complete OB Ultrasound > 14 Ordered Weeks ([id number]) Future Order: Radiology Order Nuchal Translucency ([id number]) Ordered Date Type Problem Goal Intervention Status [...]
--- OUTSIDE RECORDS SUMMARY | 2017-02-23 11:52 | External Medical Summary | Continuity of Care Document ---
:1995 Author Organization [facility] Address [address] [place], [place] [address] Phone Care Team Providers Name Role Phone [facility] Unavailable Unavailable Allergies, Adverse Reactions, [...] third trimester 32 weeks gestation of - Candidiasis of vulva and vagina Vaginal Discharge or Lesion Encounter for suprvsn of normal - , second trimester 19 weeks gestation of - Matern care for oth or susp poor fetl - grth, third tri, unsp 34 weeks gestation of - Encounter for suprvsn of normal - , third trimester Puerperal psychosis Encounter for initial prescription of [...] tri, unsp 17 weeks gestation of - Other mental disorders complicating the puerperium Nausea with vomiting, unspecified Follow-Up, Routine Pap Smear Screening, Cervix - Encounter for suprvsn of normal - , first trimester 10 weeks gestation of - Encounter for suprvsn of normal - , first trimester 13 weeks gestation of - 13 weeks gestation of - Encounter for screening of - mother 24 weeks gestation of - Encounter for suprvsn of normal - , second trimester Encounter for suprvsn of normal - , second trimester 27 weeks gestation of - Encounter for suprvsn of normal - , third trimester 30 weeks gestation of - Active Procedures Procedure Date OB Visit No Charge Results Test Name Date and Time Measure Units Reference Range Abnormal Flag Comments Unknown Advance Directives Directive Yes / No Effective Date File Name Unknown Encounters Encounter Practice Location Reason(s) Diagnoses Date Provider Care Team Description For Visit Members Arnol Burkett Matern care for Jan- Lou Referring In Womens oth or susp poor 3-201 Erin. Provider: Health PA, fetl [facility], third 7 700 Erin Lou PO Box tri, unsp34 weeks Medical K, 700 1522, gestation of [place], pregnancyDalton Brady, [facility] Dr [place]ERT[place], r for suprvsn of 120, [place] 120, [id number], normal , Kwadwo [place], third trimester [place], tel:[phone] , [place]. tel: tel: [phone] Arnol Burkett Encounter for Dec- Lou Referring In Womens suprvsn of normal 9-201 Erin. Provider: Health CHARLEY, , third 7 700 Erin Lou PO Box [email or web address] weeks Medical , 700 1522, gestation of [facility], , [facility] Dr [place], 120, [place] 120, [id number], Kwadwo [place], [place], [place], tel:+ [phone]. , [place]. tel: tel: [phone] Burektt Encounter for Sep-0 Lou Referring In Womens suprvsn of normal 5-201 Erin. Provider: Health CHARLEY, , third 7 700 Erin Lou PO Box [id number] weeks Medical , 700 1522, gestation of [facility], , [facility] Dr [place], 120, [place] 120, [id number], Kwadwo [place], [place], tel:+ [phone]. , [place]. tel: tel: [phone] Burkett Encounter for Aug-1 Lou Referring In Womens suprvsn of normal 5-201 Erin. Provider: Health CHARLEY, , second 7 700 Erin Lou PO Box [id number] weeks Medical , 700 1522, gestation of [facility], , [facility] Dr [place], 120, [place] 120, [id number], Kwadwo [place], [place], [place], tel:+ [phone]. , [place]. tel: tel: [phone] Burkett 24 weeks Ryan-2 Lou Referring In Womens gestation of 5-201 Erin. Provider: Health CHARLEY, pregnancyEncounte 7 700 Erin Lou PO Box r for suprvsn of Medical , 700 1522, normal , [facility], second trimester , [facility] Dr [place], 120, [place] 120, [id number], Kwadwo [place], [place], [place], tel: [phone]. , [place]. tel: tel: [phone] Burkett Encounter for Kyree-2 Lou Referring In Womens suprvsn of normal 1-201 Erin. Provider: Antonio WHITEHEAD, , second 7 700 Erin Lou PO Box [email or web address] weeks Medical , 700 1522, gestation of [facility], , [facility] [place], 120, [place] 120, [id number], Kwadwo Burk[place], [facility], [place], tel: [phone]. , [place]. tel: tel: [phone] Arnol Burkett Matern care for Kyree-2 Lou Referring In Womens Ultrasound oth or susp poor 1-201 Erin. Provider: Antonio WHITEHEAD, fetl grth, 2nd 7 700 Erin Lou PO Box tri, unsp19 weeks Medical , 700 1522, gestation of [facility], , [facility] Dr [place], 120, [place] 120, [id number], Kwadwo Burk[place], [facility], [place], tel: [phone]. , [place]. tel: tel: [phone] Arnol Burkett Matern care for Kyree-0 Lou Referring In Womens oth or susp poor 6-201 Erin. Provider: Antonio WHITEHEAD, ej grth, 2nd 7 700 Erin Lou PO Box tri, unsp17 weeks Medical , 700 1522, gestation of [facility], , [facility] Dr [place], 120, [place] 120, [id number], Kwadwo Burk[place], [facility], [place], tel: [phone]. , [place]. tel: tel: [phone] Arnol Burkett May-1 Lou In Womens 5-201 Erin. Antonio WHITEHEAD, 7 700 PO Box Medical 1522, [place] [address] [place], [facility] [place], 120, [id number], [place], [place], tel: [phone] , [place]. tel: [phone] Arnol Burk[place] Encounter for May-1 Lou Referring In Womens suprvsn of normal 0-201 Erin. Provider: Antonio WHITEHEAD, , first 7 700 Erin Lou PO Box [id number] weeks Medical , 700 1522, gestation of [facility], , [facility] Dr [place], 120, [place] 120, [id number], Kwadwo [place], [place], tel:[phone]. , [place]. tel: tel: [phone] [facility] 13 weeks August- Lou Referring In Womens Ultrasound gestation of 0-201 Erin. Provider: Antonio WHITEHEAD, pregnancyEncounte 7 700 Erin Lou PO Box r for Medical , 152, screening of [facility], mother , [facility] Dr [place], 120, [place] 120, , Kwadwo [place], [place], [place], tel:[phone]. , [place]. tel: tel: [phone] [facility] Pap Smear Apr-2 Lou Referring In Womens Screening, 0-201 Erin. Provider: Antonio WHITEHEAD, CervixEncounter 7 700 Erin Lou PO Box for suprvsn of Medical , 152, normal , [facility], first [id number] , [facility] Dr [place]ERT[place], weeks gestation 120, [place] 120, , of Kwadwo [place], [place], tel: [phone]. , [place]. tel: tel: [phone] rAnol Burkett Candidiasis of Apr-0 Norris Referring In Womens vulva and 7-201 Ela. Provider: Antonio WHITEHEAD, vaginaVaginal 7 700 Erin Lou PO Box Discharge or Medical K, 152, Lesion [place] [address], [facility] Dr [place], 120, [place] 120, , Kwadwo [place], [place], tel:[phone]. , [place]. tel: tel: [phone] [facility] Other August- Bland Referring In Womens pruritusUlceratio 7-201 Cassia. Provider: Antonio WHITEHEAD, n of vagina 6 700 Erin Lou PO Box Medical K, 700 1522, [facility] Dr, [facility] Dr [place], 120, [place] 120, , Kwadwo [place], [place], tel:[phone]. , [place]. tel: tel: [phone] Arnol Burkett Other May-1 Bland Referring In Womens pruritusUlceratio 0-201 Cassia. Provider: Health PA, n of 6 700 Erin Lou PO Box vaginaDysuriaEncn Medical K, 700 1522, tr screen for [facility] [place], infections w sexl , [facility] Dr [place], mode of 120, [place] 120, , transmissEncounte Kwadwo Bukrett, r for [place], tel: test, result [id number]. negative , [place]. tel: tel: [phone] Arnol Burk[place] Puerperal Mar-2 Lou Referring In Womens psychosisEncounte 2-201 Erin. Provider: Health PA, r for initial 6 700 Erin Lou PO Box prescription of Medical K, 700 1522, injectable [place], contracepPostpart , [facility] Dr [place], um Follow-Up, 120, [place] 120, , Routine Kwadwo [place], [place], tel:+ [phone]. , [place]. tel: tel: [phone] Arnol Jackson mental Mar-0 Lou Referring In Womens disorders 8-201 Erin. Provider: Health PA, complicating the 6 700 Erin Lou PO Box puerperiumNausea Medical K, 700 1522, with vomiting, [place] Yo, unspecifiedPostpa , [facility] Dr [place], rtum Follow-Up, 120, [place] 120, [id number], Routine Kwadwo [place], [place], tel:+ [phone]. , [place]. tel: tel: [phone] Arnol Burk[place] Krzysztof-0 Maura In Womens 3-201 Kaley. Health PA, 3 700 PO [facility] 15[address], [place] [address] [place], [facility] [place], 120, [id number], [place], [place], tel:[phone] 196790 , . tel:[phone] Family History Family Member Diagnosis Age At [...] Record Payers Payer name Insurance type Covered republican ID Authorization(s) [employer] [place] Medicaid MC [id number] [employer] [place] - Medicaid MC [id number] [employer] [place] - Medicaid MC [id number] Social History Type Description Quantity Date Captured Alcohol Use Details No Caffeine Use Details Unknown Tobacco Use Status Unknown Smoking Status Never smoker Vital Signs Date / Height Weight BMI Pulse Blood Temperature Respiratory Body Head BMI Time: Rate Pressure Rate Surface Circumference percentile Area 138.40 24.1 115/77 lbs 3 mm[Hg] 3:17 kg/m PM eter (2) 8 3:11 kg/m PM eter (2) Chief Complaint And Reason For Visit Unknown Chief Complaint And Reason For Visit Reason For Referral Reason For Referral Unknown Plan Of Care Date Type Action Status Appointment Kaylah Maurice BOOKED Future Order: Radiology Order Complete OB Ultrasound > 14 Ordered Weeks ([id number]) Future Order: Radiology Order Nuchal Translucency ([id number]) Ordered Date Type Problem Goal Intervention Status [...]
--- OUTSIDE RECORDS SUMMARY | 2017-02-23 11:52 | External Medical Summary | Continuity of Care Document ---
:1995 Author Organization [facility] Address [address] [place], [place] [id number] Phone Care Team Providers Name Role Phone [facility], [facility], [facility] Unavailable Unavailable Allergies, Adverse Reactions, Alerts [...] Effective Dates (start - stop) Clinical Status Matern care for oth or susp poor fetl - grth, third tri, unsp Encounter for suprvsn of normal - , third trimester 34 weeks gestation of - Candidiasis of vulva [...] suprvsn of normal - , third trimester 37 weeks gestation of - Encounter for suprvsn of normal - , third trimester 32 weeks gestation of - Encounter for suprvsn of normal - , third trimester Encounter For Screening For - Streptococcus B 35 weeks gestation of - Encounter for suprvsn of normal - , third trimester 36 weeks gestation of - Encounter for suprvsn of normal - , third trimester 30 weeks gestation of - Encounter for screening of - mother 13 weeks gestation of - Active Procedures Procedure Date Immuniz admnin, 1 vac, sngl/combo 19 Yrs + Flu Vaccine - Quadrivalent OB Visit No Charge Results Test Name Date and Time Measure Units Reference Range Abnormal Flag Comments Unknown Advance Directives Directive Yes / No Effective Date File Name Unknown Encounters Encounter Practice Location Reason(s) Diagnoses Date Provider Care Team Description For Visit Members [facility] Encounter for Oct-2 Lou Referring In Womens suprvsn of normal 4-201 Erin. Provider: Antonio WHITEHEAD, , third 7 700 Erin Lou [address] [email or web address] weeks Medical , 700 1522, gestation of [facility], , [facility] [address] [place], 120, [place] 120, [id number], Kwadwo [place], [place], tel:[phone]. , [place]. tel: tel: [phone] Arnol [place] Encounter for Oct-1 Lou Referring In Womens suprvsn of normal 7-201 Erin. Provider: Antonio WHITEHEAD, , third 7 700 Erin Lou PO Box [email or web address] weeks Medical , 700 1522, gestation of [facility], , [facility] [address] [place], 120, [place] 120, , Kwadwo [place], [place], tel:[phone]. , [place]. tel: tel: [phone] Arnol [place] Encounter for Oct-1 Lou Referring In Womens suprvsn of normal 2-201 Erin. Provider: Antonio WHITEHEAD, , third 7 700 Erin Lou PO Box trimesterEncounte Medical , 700 1522, r For [facility], Screening For Dr, [facility] Dr [place], Streptococcus B35 120, [place] 120, [id number], weeks gestation Kwadwo [place], [place], tel: [phone]. , [place]. tel: tel: [phone] Arnol [place] Matern care for Oct-1 Lou Referring In Womens Ultrasound oth or susp poor 2-201 Erin. Provider: Antonio WHITEHEAD, fetl grth, third 7 700 Erin Lou PO Box tri, [email or web address] weeks Medical , 700 1522, gestation of [facility], , [facility] [address] [place], 120, [place] 120, [id number], Kwadwo [place], [place], tel:[phone]. , [place]. tel: tel: [phone] Arnol [place] Matern care for Oct-0 Lou Referring In Womens oth or susp poor 3-201 Erin. Provider: Antonio WHITEHEAD, fetl grth, third 7 700 Erin Lou PO Box tri, [facility], 700 1522, unspEncounter for [facility], suprvsn of normal , [facility] Dr [place], , third 120, [place] 120, [id number], [email or web address] weeks Kwadwo [place], gestation of [place], tel: [phone]. , [place]. tel: tel: [phone] Arnol [place] Encounter for Sep-1 Lou Referring In Womens suprvsn of normal 9-201 Erin. Provider: Antonio WHITEHEAD, , third 7 700 Erin Lou PO Box [email or web address] weeks [facility], 700 1522, gestation of [facility], , [facility] [address] [place], 120, [place] 120, [id number], Kwadwo [place], [place], tel: [phone]. , [place]. tel: tel: [phone] Arnol [place] Encounter for Sep-0 Lou Referring In Womens suprvsn of normal 5-201 Erin. Provider: Antonio WHITEHEAD, , third 7 700 Erin Lou PO Box [email or web address] weeks Medical , 700 1522, gestation of [facility], , [facility] [address] [place], 120, [place] 120, [id number], Kwadwo [place], [place], tel: [phone]. , [place]. tel: tel: [phone] [place] Encounter for Aug-1 Lou Referring In Womens suprvsn of normal 5-201 Erin. Provider: Antonio WHITEHEAD, , second 7 700 Erin Lou PO Box [email or web address] weeks Medical , 700 1522, gestation of [facility], , [facility] Dr [place], 120, [place] 120, [id number], Kwadwo [place], [place], tel: [phone]. , [place]. tel: tel: [phone] Arnol [place] Encounter for Ryan-2 Lou Referring In Womens suprvsn of normal 5-201 Erin. Provider: Health CHARLEY, , second 7 700 Erin Lou PO Box [email or web address] weeks Medical K, 700 1522, gestation of [facility], , [facility] [address] [place], 120, [place] 120, [id number], Kwadwo [place], [place], tel: [phone]. , [place]. tel: tel: [phone] [place] Encounter for Kyree-2 Lou Referring In Womens suprvsn of normal 1-201 Erin. Provider: Antonio WHITEHEAD, , second 7 700 Erin Lou PO Box [email or web address] weeks Medical , 700 1522, gestation of [facility], , [facility] [address] [place], 120, [place] 120, [id number], Kwadwo [place], [place], tel: [phone]. , [place]. tel: tel: [phone] Arnol [place] Matern care for Kyree-2 Lou Referring In Womens Ultrasound oth or susp poor 1-201 Erin. Provider: Antonio WHITEHEAD, fetl ty, 2nd 7 700 Erin Lou PO Box tri, [email or web address] weeks Medical , 700 1522, gestation of [facility], , [facility] [address] [place], 120, [place] 120, [id number], Kwadwo [place], [place], tel: [phone]. , [place]. tel: tel: [phone] [place] Matern care for Kyree-0 Lou Referring In Womens oth or susp poor 6-201 Erin. Provider: Antonio WHITEHEAD, fetl grth, 2nd 7 700 Erin Lou PO Box tri, [email or web address] weeks Medical , 700 1522, gestation of [facility], , [facility] [address] [place], 120, [place] 120, , Kwadwo [place], [place], tel:[phone]. , [place]. tel: tel: [phone] Arnol [place] May-1 Lou In Womens 5-201 Erin. Health CHARLEY, 7 700 PO Box Medical 1522, [place], , [place], 120, , [place], [place], tel:[phone] , [place]. tel: [phone] Arnol [place] Encounter for August- Lou Referring In Womens suprvsn of normal 0-201 Erin. Provider: Health PA, , first 7 700 Erin Lou PO Box [email or web address] weeks Medical , 700 1522, gestation of [facility], , [facility] [address] [place], 120, [place] 120, , Kwadwo [place], [place], tel:[phone]. , [place]. tel: tel: [phone] Arnol [place] Encounter for August-1 Lou Referring In Womens Ultrasound 0-201 Erin. Provider: Health CHARLEY, screening of 7 700 Erin Lou PO Box [email or web address] weeks Medical K, 700 1522, gestation of [facility], , [facility] [address] [place], 120, [place] 120, , Kwadwo [place], [place], tel:[phone]. , [place]. tel: tel: [phone] Arnol [place] Pap Smear Apr-2 Lou Referring In Womens Screening, 0-201 Erin. Provider: Health CHARLEY, CervixEncounter 7 700 Erin Lou PO Box for suprvsn of Medical K, 700 1522, normal , [facility], first [email or web address] , [facility] Dr [place], weeks gestation 120, [place] 120, , of Kwadwo [place], [place], tel:[phone]. , [place]. tel: tel: [phone] Arnol [place] Candidiasis of Apr-0 Norris Referring In Womens vulva and Ela. Provider: Health PA, vaginaVaginal 7 700 Erin Lou PO Box Discharge or Medical K, 152, [place], [facility] [address] [place], 120, [place] 120, , Kwadwo [place], [place], [place], tel:[phone]. , [place]. tel: tel: [phone] Associates [facility] Other Bland Referring In Womens pruritusUlceratio 7-201 Cassia. Provider: Health CHARLEY, n of vagina 6 700 Erin Lou PO Box Medical K, 1521, [address], [facility] [address] [place], 120, [place] 120, , Kwadwo [place], [place], tel:[phone]. , [place]. tel: tel: [phone] Arnol [place] Other Bland Referring In Womens pruritusUlceratio 0-201 Cassia. Provider: Health PA, n of 6 700 Erin Lou PO Box vaginaDysuriaEncn Medical K, 152, tr screen for [facility] [place], infections w sexl , [facility] Dr [place], mode of 120, [place] 120, , transmissEncounte Kwadwo [place], r for [place], tel: test, result [phone]. negative , [place]. tel: tel: [phone] Arnol [place] Puerperal Mar-2 Lou Referring In Womens psychosisEncounte 2-201 Erin. Provider: Health PA, r for initial 6 700 Erin Lou PO Box prescription of Medical K, 152, injectable [facility] [place], contracepPostpart , [facility] Dr [place], Follow-Up, 120, [place] 120, , Routine Kwadwo [place], [place], tel:[phone]. , . tel: tel: [phone] [facility] Other mental Mar-0 Lou Referring In Womens disorders 8-201 Erin. Provider: Health CHARLEY, complicating the 6 700 Erin Lou PO Box puerperiumNausea Medical K, 700 1522, with vomiting, [facility] [place], unspecifiedPostpa , [facility] [place], rtum Follow-Up, 120, [place] 120, [id number], Routine Kwadwo [place], [place], tel: [phone]. , [place]. tel: tel: [phone] Arnol [place] Krzysztof-0 Maura In Womens 3-201 Kaley. Health CHARLEY, 3 700 PO Box Medical 1522, [facility] [place], , [place], 120, [id number], [place], [place], tel: [phone] , . tel: [phone] Family History Family Member Diagnosis Age At [...] [employer] [place] Medicaid MC [id number] [employer] [place] [employer] [place] MC [id number] [employer] [place] - Medicaid MC [id number] Social History Type Description Quantity Date Captured Alcohol Use Details No Caffeine Use Details Unknown Tobacco Use Status Unknown Smoking Status Never smoker Vital Signs Date / Height Weight BMI Pulse Blood Temperature Respiratory Body Head BMI Time: Rate Pressure Rate Surface Circumference percentile Area 143.20 24.9 107/66 2017 lbs 7 mm[Hg] 4:11 kg/m PM eter (2) Chief Complaint And Reason For Visit Unknown Chief Complaint And Reason For Visit Reason For Referral Reason For Referral Unknown Plan Of Care Date Type Action Status Appointment Kaylah Maurice BOOKED Future Order: Radiology Order Complete OB Ultrasound > 14 Ordered Weeks (12757) Future Order: Radiology Order Ultrasound OB Follow-up (47886) Ordered Future Order: Radiology Order Nuchal Translucency ([id number]) Ordered Date Type Problem Goal Intervention Status [...]
--- OUTSIDE RECORDS SUMMARY | 2017-02-23 11:52 | External Medical Summary | Continuity of Care Document ---
:1995 Author Organization [facility] Allergies Active Description Code Type Severity Reaction Onset Reported/ Identified Relationship Clinical to Patient Status Yes No Known 29064 3 N/A N/A Drug 0 Allergies Medications Medication Packaging Start Date Stop Date Route Dosage Sig Capsule 07/06/2015 OMEPRAZOLE 7 take 1 capsule by oral route every day before a meal Tablet 07/20/2015 ESCITALOPRAM 7 take OXALATE 1/2 tablet by oral route every day for 2 weeks, then increase to a full tablet if needed Tablet 08/30/2015 DIFLUCAN 6 take 1 tablet by oral route once Tablet 09/07/2015 METRONIDAZOLE 7 take 1 tablet by ORAL route every 12 hours Milliliter 09/07/2015 LIDOCAINE HCL 7 apply by Topical route 3 times every day as needed Tablet 09/07/2015 ACYCLOVIR 7 take 1 tablet by oral route 3 times every day Tablet 09/15/2015 ZOFRAN 7 take 1 by Oral route every 4 hours as needed Tablet 07/14/2016 ONDANSETRON HCL 7 take 1 by Oral route every 4 hours Tube 08/04/2016 CLOTRIMAZOLE 7 apply by vaginal route every day for 1 week Tablet 09/08/2016 ONDANSETRON HCL 7 take 1 by Oral route every 4 hours Tablet 10/03/2016 ONDANSETRON HCL 7 take 1 by Oral route every 4 hours Tablet 10/10/2016 AMOXICILLIN 7 take 1 tablet by oral route 3 times every day for 10 days Gram 10/18/2016 MIRALAX take (17G) by oral route every day mixed with 8 oz. water, juice, soda, coffee or tea as needed Tablet 11/30/2016 AMOXICILLIN 7 take 1 tablet by oral route 3 times every day for 10 days Tablet 01/30/2017 ACYCLOVIR take 1 tablet by oral route 3 times every day until delivery Problems Date Dx Attending Type Code Diagnosis Diagnosed By Coded 06/03/2015 Erin Lou O47.9 Threatened labor at term 06/03/2015 Erin Lou O99.89 Pain of round ligament complicating , ant 06/09/2015 Erin Lou O36.5930 Matern care for oth or susp poor fetl grth, third tri, unsp 02/15/2016 LAURA BARFIELD Z00.00 ENCNTR FOR GENERAL ADULT MEDICAL EXAM W/O ABNORMAL FINDINGS 02/15/2016 DANA BARFIELDA Z23 ENCOUNTER FOR IMMUNIZATION 02/15/2016 LAURA BARFIELD Z71.89 OTHER SPECIFIED COUNSELING 02/15/2016 LAURA BARFIELD Z00.00 ENCNTR FOR GENERAL ADULT MEDICAL EXAM W/O ABNORMAL FINDINGS 02/15/2016 DANA BARFIELDA Z23 ENCOUNTER FOR IMMUNIZATION 02/15/2016 LAURA BARFIELD Z71.89 OTHER SPECIFIED COUNSELING 04/14/2016 LAURA BARFIELD F33.1 MAJOR DEPRESSIVE DISORDER, RECURRENT, MODERATE 04/14/2016 LAURA BARFIELD F41.1 GENERALIZED ANXIETY DISORDER 04/14/2016 LAURA BARFIELD J45.30 MILD PERSISTENT ASTHMA, UNCOMPLICATED 04/14/2016 LAURA BARFIELD Z71.89 OTHER SPECIFIED COUNSELING 09/06/2016 Erin Lou Z36 Encounter for screening of mother 09/06/2016 Erin Lou Z3A.13 13 weeks gestation of 10/18/2016 Erin Lou O36.5920 Matern care for oth or susp poor fetl grth, 2nd tri, unsp 10/18/2016 Erin Lou Z3A.19 19 weeks gestation of 02/08/2017 W O36.5930 Matern care for oth or susp poor fetl grth, third tri, unsp 02/08/2017 W Z3A.35 35 weeks gestation of Procedures Code Description Performed By Performed On 05/27/2015 96709 Observ or inpatient hospcare, low 06/09/2015 29786 Ultrasnd preg uterus, flwup/repeat 06/09/2015 05334 biophys prfl w/o nstress test 09/06/2016 05903 Ultrasound, Nuchal Translucency Measurement 10/18/2016 49117 Ultrasnd exam of preg uterus, compl 02/08/2017 82919 Ultrasnd preg uterus, flwup/repeat Results Encounters ACCT No. Visit Discharge Status Pt. Type Provider Facility Loc./Unit Complaint Date/Time [id number] 04/14/2016 04/14/2016 [facility] Outpatient LOVE, 15:39:00 23:59:59 LAURA [id number] 02/15/2016 02/15/2016 CLS Outpatient LOVE, 14:45:00 23:59:59 LAURA [id number] 01/30/2017 01/30/2017 CLS Outpatient Lou, 15:40:00 23:59:59 Erin Chappell [id number] 01/22/2017 01/22/2017 CLS Outpatient Lou, 10:37:00 23:59:59 Erin Chappell [id number] 01/16/2017 01/16/2017 CLS Outpatient Lou, 15:00:00 23:59:59 Erin Chappell [id number] 01/02/2017 01/02/2017 CLS Outpatient Lou, 15:00:00 23:59:59 Erin Chappell [id number] 12/12/2016 12/12/2016 CLS Outpatient Lou, 14:45:00 23:59:59 Erin Chappell [id number] 11/30/2016 11/30/2016 CLS Outpatient Lou, 11:31:00 23:59:59 Erin Chappell [id number] 11/21/2016 11/21/2016 CLS Outpatient Lou, 15:00:00 23:59:59 Erin Chappell [id number] 10/18/2016 10/18/2016 CLS Outpatient Lou, 10:45:00 23:59:59 Erin Chappell [id number] 10/18/2016 10/18/2016 CLS Outpatient Lou, 10:15:00 23:59:59 Erin Chappell [id number] 10/10/2016 10/10/2016 CLS Outpatient Lou, 14:49:00 23:59:59 rEin Chappell [id number] 10/03/2016 10/03/2016 CLS Outpatient Lou, 11:05:00 23:59:59 Erin Chappell [id number] 10/02/2016 10/02/2016 CLS Outpatient Lou, 11:58:00 23:59:59 Erin Chappell [id number] 09/12/2016 09/12/2016 CLS Outpatient Lou, 11:55:00 23:59:59 Erin Chappell [id number] 09/11/2016 09/11/2016 CLS Outpatient Lou, 14:22:00 23:59:59 Erin Chappell [id number] 09/08/2016 09/08/2016 CLS Outpatient Lou, 10:08:00 23:59:59 Erin Chappell [id number] 09/06/2016 09/06/2016 CLS Outpatient Lou, 09:25:00 23:59:59 Erin Chappell [id number] 09/06/2016 09/06/2016 CLS Outpatient Lou, 09:15:00 23:59:59 Erin Chappell [id number] 09/04/2016 09/04/2016 CLS Outpatient Lou, 09:28:00 23:59:59 Erin Chappell [id number] 08/31/2016 08/31/2016 CLS Outpatient Lou, 13:46:00 23:59:59 Erin Chappell [id number] 08/21/2016 08/21/2016 CLS Outpatient Lou, 14:52:00 23:59:59 Erin Chappell [id number] 08/17/2016 08/17/2016 CLS Outpatient Lou, 08:45:00 23:59:59 Erin Chappell [id number] 08/04/2016 08/04/2016 CLS Outpatient Norris, 14:35:00 23:59:59 Ela Marc [id number] 08/04/2016 08/04/2016 CLS Outpatient Lou, 09:45:00 23:59:59 Erin Chappell [id number] 07/13/2016 07/13/2016 CLS Outpatient Lou, 16:13:00 23:59:59 Erin Chappell [id number] 09/15/2015 09/15/2015 CLS Outpatient Lou, 11:23:00 23:59:59 Erin Chappell [id number] 09/14/2015 09/14/2015 CLS Outpatient Bland, 13:45:00 23:59:59 Cassia Almanzar [id number] 09/07/2015 09/07/2015 CLS Outpatient Bland, 15:33:00 23:59:59 Cassia Almanzar [id number] 09/07/2015 09/07/2015 CLS Outpatient Bland, 13:45:00 23:59:59 Cassia Almanzar [id number] 08/30/2015 08/30/2015 CLS Outpatient Lou, 13:14:00 23:59:59 Erin Chappell [id number] 08/04/2015 08/04/2015 CLS Outpatient Lou, 09:49:00 23:59:59 Erin Chappell [id number] 07/20/2015 07/20/2015 CLS Outpatient Lou, 14:00:00 23:59:59 Erin Chappell [id number] 07/06/2015 07/06/2015 CLS Outpatient Lou, 13:15:00 23:59:59 Erin Chappell [id number] 07/05/2015 07/05/2015 CLS Outpatient Lou, 13:39:00 23:59:59 Erin Chappell [id number] 06/10/2015 06/10/2015 CLS Outpatient Lou, 12:38:00 23:59:59 Erin Chappell [id number] 06/09/2015 06/09/2015 CLS Outpatient Lou, 11:30:00 23:59:59 Erin Chappell [id number] 06/09/2015 06/09/2015 CLS Outpatient Lou, 11:15:00 23:59:59 Erin Chappell [id number] 06/01/2015 06/01/2015 CLS Outpatient Lou, 14:30:00 23:59:59 Erin Chappell [id number] 05/27/2015 05/27/2015 CLS Outpatient Lou, 08:17:00 23:59:59 Erin Chappell [id number] 02/08/2017 Document 11:10:00 Registration [id number] 02/08/2017 Document 10:45:00 Registration
--- OUTSIDE RECORDS SUMMARY | 2017-02-23 11:52 | External Medical Summary | Referral Summary ---
:1993 Author Organization [facility] [address] [place] [address] Care Team Providers Name Role Phone No PCP, States Primary Care Physician Encounter VC Date(s): 08/13/15 - 08/13/15 [facility] [address] [place] [address] Discharge Disposition: 01-Home or Self Care Attending Physician: Santiago Nicole MD Admitting Physician: Santiago Nicole MD Vital Signs Most recent to oldest [Reference Range]: 1 Temperature Tympanic [36.6-38.1 degC] 37.2 degC (08/13/15 12:53 PM) Peripheral Pulse Rate [60-100 bpm] 93 bpm (08/13/15 12:53 PM) Blood Pressure [90-140/60-90 mmHg] 123/64 mmHg (08/13/15 12:53 PM) Problem List No data available for this section Allergies, Adverse Reactions, Alerts No Known Allergies Medications amoxicillin 500 mg oral capsule 500 mg 1 caps, Oral, TID, X 10 days, # 30 caps, 0 Refill(s), Pharmacy: [facility] #[id number], 1 caps Oral TID,x10 days Start Date: 08/13/15 Stop Date: 08/23/15 Status: OrderedLexapro 10 mg oral tablet 5 mg 0.5 tabs, Oral, Daily, 0 Refill(s) Start Date: 08/13/15 Status: Ordered Results No data available for this section Immunizations No data available for this section Procedures No data available for this section Social History Social History Type Response Smoking Status Never smoker Assessment and Plan Extracted from: Title: Ambulatory Patient Education Author: Santiago Nicole MD Date: 08/13/15 [facility] Pharyngitis Pharyngitis is redness, pain, and swelling (inflammation) of your pharynx. CAUSES Pharyngitis is usually caused by infection. Most of the time, these infections are from viruses (viral) and are part of a cold. However, sometimes pharyngitis is caused by bacteria (bacterial). Pharyngi tis can also be caused by allergies. Viral pharyngitis may be spread from person to person by coughing, sneezing, and personal items or utensils (cups, forks, spoons, toothbrushes). Bacterial pharyngiti s may be spread from person to person by more intimate contact, such as kissing. SIGNS AND SYMPTOMS Symptoms of pharyngitis include: Sore throat. Tiredness (fatigue). Low-grade fever. Headache. Joint pain and muscle aches. Skin rashes. Swollen lymph nodes. Plaque-like film on throat or tonsils (often seen with bacterial pharyngitis). DIAGNOSIS Your health care provider will ask you questions about your illness and your symptoms. Your medical history, along with a physical exam, is often all that is needed to diagnose pharyngitis. Sometimes, a rapid strep test is done. Other lab tests may also be done, depending on the suspected cause. TREATMENT Viral pharyngitis will usually get better in 34 days without the use of medicine. Bacterial pharyngitis is treated with medicines that kill germs ( antibiotics). HOME CARE INSTRUCTIONS Drink enough water and fluids to keep your urine clear or pale yellow. Only take ykup-dmv-xdchxgm or prescription medicines as directed by your health care provider: If you are prescribed antibiotics, make sure you finish them even if you start to feel better. Do not take aspirin. Get lots of rest. Gargle with 8 oz of salt water ( tsp of salt per 1 qt of water) as often as every 12 hours to soothe your throat. Throat lozenges (if you are not at risk for choking) or sprays may be used to soothe your throat. SEEK MEDICAL CARE IF: You have large, tender lumps in your neck. You have a rash. You cough up green, yellow-brown, or bloody spit. SEEK IMMEDIATE MEDICAL CARE IF: Your neck becomes stiff. You drool or are unable to swallow liquids. You vomit or are unable to keep medicines or liquids down. You have severe pain that does not go away with the use of recommended medicines. You have trouble breathing (not caused by a stuffy nose). MAKE SURE YOU: Understand these instructions. Will watch your condition. Will get help right away if you are not doing well or get worse. This information is not intended to replace advice given to you by your health care provider. Make sure you discuss any questions you have with your health care provider. Document Released: 04/16/2006 Document Revised: 02/04/2014 Document Reviewed: 12/22/2013 ExitCare Patient Information 2015 [employer]. No follow up information was provided. Extracted from: Title: pharyngitis, lymphadenopathy Author: Santiago Nicole MD Date: 08/13/15 Impression and Plan Diagnosis Acute pharyngitis ([id number]-JM J02.9, Working, Medical). Anterior cervical adenopathy (XCR23-WR R59.0, Working, Medical). Plan: 1) Your rapid strep screen was negative. 2) Take Amoxicillin as directed, at least until Sunday. At that time we will see how rapidly the Amoxicillin has helped you (if at all) before deciding whether or not to discontinue it. 3) Rest at home this weekend. 4) Followup as needed. 5) May use OTC pain meds as needed. 6) No change to your routine meds otherwise.. Orders Orders (Selected) Outpatient Orders InProcess (In Process) Group A Strep Culture: Ordered Office Visit Level 4 Est 48298: Completed Rapid Strep: Prescriptions Prescribed amoxicillin 500 mg oral capsule: 500 mg=1 caps, Oral, TID, for 10 days, 30 caps , 0 Refill(s). Dx/Order Association Plan: Diagnosis: Acute pharyngitis Comment: Modified: Office Visit Level 4 Est 86439; 08/13/15 13:01:00 CDT, Acute pharyngitis | Anterior cervical adenopathy Other status: Rapid Strep; Micro Specimen, Routine collect, 08/12 13:07:00 CDT, Once, Stop date 08/13/15 13:07:00 CDT, Nurse Collect Non-Blood , Acute pharyngitis (Completed) Diagnosis: Anterior cervical adenopathy Comment: Modified: Office Visit Level 4 Est 70782; 08/13/15 13:01:00 CDT, Acute pharyngitis | Anterior cervical adenopathy Additional Orders: Comment: Ordered: Lexapro 10 mg oral tablet,5 mg 0.5 tabs, Oral, Daily, 0 Refill(s) Ordered: amoxicillin 500 mg oral capsule,500 mg 1 caps, Oral, TID , X 10 days, # 30 caps, 0 Refill(s), Pharmacy: [facility] #[id number], 1 caps Oral TID,x10 days End of Orders ."
[2017-02-23 12:24] VITALS: BMI 25.7
[2017-02-23] MEDS ORDERED: MAG-AL + SIM ORAL LIQUID 30ml PO PRN ×2 (12:57→21:20)
[2017-02-23] MEDS ORDERED: METHYLERGONOVINE 0.2 MG/ML INJECTION IM PRN (12:57)
[2017-02-23] MEDS ORDERED: LIDOCAINE 1% (10mg/ml) 2mL INJ PF SDV ID PRN (12:57)
[2017-02-23] MEDS ORDERED: CALCIUM CARBONATE Chewable 500mg TABLET PO PRN ×2 (12:57→21:20)
[2017-02-23] MEDS ORDERED: ACETAMINOPHEN 500 MG TABLET PO PRN ×2 (12:57→21:20)
[2017-02-23] MEDS ORDERED: CARBOPROST 250 MCG/ML INJECTION IM PRN (12:57)
[2017-02-23] MEDS: D5LR 1,000 ML IV SCH (13:20)
[2017-02-23] MEDS: LR 1,000 ML IV PRN ×2 (13:20→15:59)
[2017-02-23] MEDS ORDERED: ROPIVACAINE 1% 10MG/ML INJ 200 MG, SUFentanil 50 MCG in NS 100 ML EPI PRN (16:02)
[2017-02-23] MEDS ORDERED: ONDANSETRON 4 MG/2 ML INJECTION IVP PRN (16:02)
[2017-02-23] MEDS ORDERED: DiphenhydrAMINE 50 MG/ML INJECTION IVP PRN (16:02)
[2017-02-23] MEDS ORDERED: NALOXONE 0.4 MG/ML INJECTION IVP PRN (16:02)
--- NOTE | 2017-02-23 16:02 | Anesthesia Preoperative Report ---
Anesthesia Epidural/Spinal Rec - Date and Time Date: 02/23/17 Preoperative Diagnosis: , 38 weeks Procedure: Labor Epidural Plan: Epidural - Vital Signs Vital Signs: Temperature 97.8 F 02/23/17 12:29 Pulse Rate 95 02/23/17 12:29 Respiratory Rate 16 02/23/17 12:29 Blood Pressure 118/66 02/23/17 12:29 Pulse Oximetry 100 02/23/17 12:29 /Para: P:2 - Medictaions & Allergies Inpatient Medications: Current Medications Acetaminophen (Tylenol) 500 - 1,000 mg PO Q4H PRN PRN Reason: Pain Al Hydroxide/Mg Hydroxide (Maalox Plus) 30 ml PO Q3H PRN PRN Reason: Indigestion Calcium Carbonate (Tums) 500 - 1,000 mg PO Q2H PRN PRN Reason: Indigestion Carboprost Tromethamine (Hemabate) 250 mcg IM O PRN PRN Reason: .Downtime Dextrose/Lactated Ringer's (Dextrose 5%-Lactated Ringers) 1,000 mls @ 125 mls/ hr IV .Q8H KODI Lactated Ringer's (Lactated Ringers) 1,000 mls @ 999 mls/hr IV .Q1H1M PRN Lidocaine HCl (Xylocaine-Mpf 1% Vial) 0.2 mg ID O PRN PRN Reason: IV Start Methylergonovine Maleate (Methergine) 0.2 mg IM O PRN Misoprostol (Cytotec) 800 mcg MN ONCE PRN Allergies/Adverse Reactions: Allergies Allergy/AdvReac Type Severity Reaction Status Date / Time poison jesika extract Allergy Unknown From Verified 07/29/16 15:20 "Poison Jesika" Ragweed Allergy Unknown Uncoded 07/29/16 15:20 - Home Medications Home Medications: Home Medications Medication Instructions Recorded Confirmed Type Acetaminophen 1,000 mg PO Q8H PRN #0 03/21/16 History Acyclovir 1 tab PO 02/23/17 History - Medical History Respiratory: Reports: Asthma (inhaler 2 weeks ago ) - Surgical History Anesthesia Reactions: None Hx Family Anesthesia Reaction: No - Pertinent Findings Lab Data: CBC and BMP 02/23/17 13:22 - Physical Exam Respiratory Exam: lungs clear Cardiovascular Exam: regular rate and rhythm - Airway Assessment Mallampati Score: II TMD: 3 Fingerbreadths Overall Assessment: may be difficult intubation - ASA ASA Score: 2 - Discussion Discussion: Discussed risks/options/alternatives of anesthesia and questions answered. Patient consents. Nursing pain assessment noted. Attestation Statement: Prior to the delivery of any anesthetic medication, I examined the patient, developed the plan, obtained the patient's consent and discussed the risk and benefits of the procedure with the patient/guardian.
[2017-02-23] MEDS ORDERED: D5LR 1,000 ML IV PRN (17:31)
[2017-02-23] MEDS ORDERED: OXYTOCIN DRIP 30 UNIT/500 ML ML IV PRN (17:31)
[2017-02-23] MEDS ORDERED: OXYTOCIN DRIP 30 UNIT/500 ML ML IV SCH (21:20)
[2017-02-23] MEDS ORDERED: BENZOCAINE 20% SPRAY 0.5 ML MM ONE (21:20)
[2017-02-23] MEDS ORDERED: HYDROCORTISONE 2.5% CREAM 30gm RECTALLY PRN (21:20)
[2017-02-23] MEDS ORDERED: DiphenhydrAMINE 25 MG CAPSULE PO PRN (21:20)
[2017-02-23] MEDS: IBUPROFEN 800 MG TABLET PO PRN (21:54)
[2017-02-24] MEDS: D5LR 1,000 ML IV SCH
[2017-02-24] MEDS ORDERED: DOCUSATE CALCIUM 240 MG CAPSULE PO SCH (09:00)
[2017-02-24] MEDS: HYDROCODONE/APAP 5mg/325mg TABLET PO PRN ×2 (09:12→20:07)
[2017-02-24] MEDS: IBUPROFEN 800 MG TABLET PO PRN ×2 (09:13→20:03)
--- NOTE | 2017-02-24 10:57 | Labor and Delivery Note ---
DATE OF DELIVERY: 02/23/2017 DIAGNOSES 1. 21-year-old white female, G3, P2, at 38.0 weeks gestational age. 2. Spontaneous labor. 3. Artificial rupture of membranes. 4. Epidural anesthesia. 5. Pitocin augmentation to 10 milliunits a minute. 6. Spontaneous vaginal delivery. 7. Nuchal cord x 1, tight - delivered through. 8. Male , 2860 g, 8/9 Apgars (Leon Torres). This a patient of Dr. Lou's who came in, in spontaneous labor, today. Her cervix was initially 3.5 cm. She has a history of herpes, but there were no lesions seen by Dr. Lou on the initial exam. I checked her an [id number] later and there was no change in the cervix, so artificial rupture of membranes occurred. Later, when there was no change, I added Pitocin augmentation and it went to a maximum of 10 milliunits a minute. Her contractions became closer together and stronger and she continued to progress and made it to complete dilation. With pushing we had a spontaneous vaginal delivery from the OA position. was bulb suctioned after delivery of the head and then again after delivery of the body. There was a tight nuchal cord that was elevated and delivered through. The cord was allowed to drain for about 2 minutes before it was doubly clamped and cut. The 's father cut the cord. The infant was initially placed on mother's abdomen. The placenta delivered spontaneously and was intact.. Perineum was intact. EBL was 250. Maternal blood type is A+, rubella is immune and GBS is negative. At the time of dictation mother and infant are doing well. [facility]
--- NOTE | 2017-02-24 12:29 | Progress Note ---
OB PP Progress Note Free Text - Date Date: 02/24/17 - Progress Note Progress Note: vss af hgb ropped 2 gram doing well. no c/o. desires dc today instructions reviewed fu 5-6 wks [id number]
[2017-02-24 15:42] VITALS: BP 112/69; PULSE 74; RESP 16; TEMP 97.5; O2SAT 100
== END 2017-02-24 20:53 | disposition home or self-care (01) | DRG 774 ==
LOC: EDCLIBED → OBOBS 11:45 → MC 11:46
PROVIDERS: ADMIT Obstetrics & Gynecology; ATTEND Obstetrics & Gynecology